=== PATIENT | male | born 1990 | race Caucasian/White ===

== ENCOUNTER → 2016-07-12 | Outpatient (CLI) | payer BC ==
[~2016-07-12] MED LIST: GADOBUTROL 10 MMOL/10 ML (GADAVIST) VIAL IV ONE
--- NOTE | 2016-07-12 18:20 | Diagnostic Imaging Report ---
INDICATION: Low testosterone. MRI brain with and without contrast. TECHNIQUE: Multiplanar, multisequence imaging of the brain was done before and after intravenous gadolinium enhancement. FINDINGS: The ventricles are normal in size, shape, and position. There are no masses or hemorrhages. There are no extra-axial fluid collections. Sella and parasellar structures appear normal. Specifically, there are no parathyroid masses. Post contrast images do not show any abnormal areas of enhancement. IMPRESSION: Negative MRI brain with and without contrast. Dictated by: Dictated on workstation # [id number]
== END ==
LOC: RAD 17:03
PROVIDERS: ATTEND Otolaryngology Otolaryngology/Facial Plastic Surgery
DX: R53.83 Other fatigue (principal); R79.9 Abnormal finding of blood chemistry, unspecified
CPT/HCPCS: 70553